=== PATIENT | female | born 1975 | race Caucasian/White ===

== ENCOUNTER 2022-07-11 10:47 | Outpatient (CLI) | payer OTHER, SELFPAY ==
[2022-07-11 12:25] VITALS: PULSE 85; O2SAT 94
[2022-07-11 12:35] VITALS: PULSE 72; O2SAT 95
--- NOTE | 2022-07-11 13:53 | HOMEO2EVAL ---
Evaluation was performed at [facility] Evaluation [facility]: Home Oxygen (O2) Evaluation Start: 07/11/22 13:37 Freq: Status: Active Protocol: RPE Activity Type Activity Date Activity User E-sign Co-sign Detail Recorded Client Recorded Date Recorded By Document 07/11/22 12:25 DOUGWilli [id number] 07/11/22 13:48 KAB Document 07/11/22 12:35 KAB [id number] 07/11/22 13:48 KAB 07/11/22 07/11/22 12:25 12:35 Home O2 Evaluation Test Phase Resting Exercise Oxygen Delivery Room Air Room Air Pulse Oximetry (90-100 %) 94 95 Pulse Rate (60-100 beats/min) 85 72 Activity Tolerance Excellent Excellent Rating of Perceived Dyspnea (PD) +1 Mild, Noticeable to the Participant but Not to an Observer Rate of Perceived Exertion (PE) 9 Very light Ambulation Distance (feet) 340 Ambulation Distance (meters) 103.62 Home Oxygen Evaluation Comments Pt walked approx 340 feet . Spo2 stayed in the 90's. Treatment Charges O2 Evaluation - Outpatient
--- NOTE | 2022-07-11 14:41 | WPDPFTINT ---
PFT Procedure Performed PFT Procedure Performed Spirometry with Pre/Post Bronchodilator Plethysmography (Lung Vol) Flow Vol Loop PFT Interpretation DOS: 07/11/2022 REQUESTING: Luis Angel Harris APRN REASON FOR TESTING: COPD PULMONARY FUNCTION TESTS Results are reliable and reproducible. Spirometry: Pre bronchodilator FEV1 is 1.34 L, 52% predicted, moderately decreased. Pre bronchodilator FVC 2.41 L, 71% predicted. The FEV1/FVC ratio is 56%. This is decreased and demonstrates airflow obstruction. The DTC80-80% is 0.54 L, 18% predicted. After bronchodilator, there is 12% increase in FVC, 2.69 L, more than 200 mL. There is 18% increase in FEV!, 1.58 L, greater than 200 mL. This is significant. The LML35-43% increases 24%, however the absolute amount is low. Lung volumes: The total lung capacity is 5.39 L, 108% predicted, normal. Residual volume is 170% predicted, 2.94 L, severe air trapping. RV/TLC is increased at 55% consistent with air trapping. Airway resistance is 280%, increased. Diffusion: Not performed due to technical problems with the equipment. Flow volume loop: There is significant coving of the expiratory limb. IMPRESSION: This study shows moderately a severe obstructive ventilatory impairment with excellent response to bronchodilator. There is severe air trapping. No diffusion was obtained due to technical problems with the equipment. Abbey Denson MD
== END 2022-07-11 10:48 | disposition home or self-care (01) ==
PROVIDERS: PCP Nurse Practitioner Family; Visit Provider Nurse Practitioner Family
DX: J44.9 Chronic obstructive pulmonary disease, unspecified (principal)
CPT/HCPCS: 94060; 94618; 94726

== ENCOUNTER 2022-07-23 12:04 | Outpatient (CLI) | payer OTHER, SELFPAY ==
[2022-07-27 07:17] LABS: Alpha-1-Antitrypsin, QN 110 mg/dL (83-199)
== END 2022-07-23 12:05 | disposition home or self-care (01) ==
LOC: CHSLAB 12:05
PROVIDERS: PCP Nurse Practitioner Family; Visit Provider Nurse Practitioner Family
DX: J44.9 Chronic obstructive pulmonary disease, unspecified (principal); Z14.8 Genetic carrier of other disease
CPT/HCPCS: 36415; 82103

== ENCOUNTER 2022-08-30 20:06 | Outpatient (CLI) | payer OTHER, SELFPAY ==
--- NOTE | 2022-09-24 12:11 | WPDSLEEPSTUD ---
Sleep Study Date of Study: 08/30/22 Ordering Provider: Luis Angel Harris APRN Interpreting Physician: Abbey Denson MD Sleep Study Type: Polysomnogram Height: 1.63 m Weight: 38.555 kg Body Mass Index: 14.6 Neck Circumference (inches): 13 [place]: 11 Reason for Sleep Study Hypersomnia, fragmented sleep, hypoxemia at night; split night study requested * July 24, 2022, Nocturnal oximetry -oxygen desaturation index of 72 and a minimum desaturation to 80%. The patient spent 228 minutes below 88% saturation. Sleep History Abbey Wilhelm is a 47-year-old woman with COPD and tobacco abuse. She has a history of opioid abuse, in remission, on Suboxone. She had a nocturnal oximetry on July 24, 2022 which showed an oxygen desaturation index of 72 and a minimum desaturation to 80%. The patient spent 228 minutes below 88% saturation. She was referred for a split night study. She has taking medications to help her get to sleep. She frequently awakens from sleep feeling short of breath. She does not awaken at night with heartburn, belching or coughing. She constantly snores loudly enough that others complain about it. She occasionally has trouble sleeping with a cold. She frequently wakes up gasping for breath at night. She constantly has breathing problems at night observed by others. She does not sweat excessively at night. She rarely notices her heart pounding or beating irregularly at night. She occasionally falls asleep during the day. She does not fall asleep involuntarily or while driving. She rarely has loss of muscle tone with strong emotion. She rarely has daytime difficulties due to excessive sleepiness. She occasionally feels paralyzed on waking or falling asleep and occasionally has vivid dreamlike scenes on waking or falling asleep. She is occasionally afraid to go to sleep. On occasion she has nightmares. She frequently remembers her dreams. She frequently has racing thoughts. She does not feel sad or depressed. She constantly has anxiety. She occasionally has muscular tension. She frequently notices parts of her body jerking, and occasionally kicks at night. She occasionally has crawling aching feelings in her legs. She rarely has any kind of leg pain at night. She does not have morning jaw pain. She does not grind her teeth with sleep. She is not bothered by pain during the day or awakened by pain at night. She rarely wakes up feeling stiff the morning. She occasionally wakes up with sore achy muscles. She occasionally wakes up with pain in the neck and spine. She has headaches, fatigue, and memory problems. Normal bedtime is between 10:00 p.m. and 11:00 p.m., taking 30 minutes to 1 hour to fall asleep. She typically wakes up 1-2 times during the night. While awake, she may watch television. It takes her 15 minutes to an hour to return to sleep. She wakes the morning by 7:00 a.m.. Her weekend schedule is the same. She estimates having getting between 6 and 8 hours of sleep at night. She takes naps in the afternoon or evening. She may feel refreshed after short 10-15 minute nap. She is usually drowsy for an hour or longer after waking. She feels better in the morning compared to other times of day. Habits: Tobacco 1/2 pack per day. Caffeine 8 oz to 16 oz a day. No alcohol. She endorses using recreational drugs, does not specify. [facility] Past Medical History Medical History (Updated 09/24/22 @ 18:57 by Abbey Denson MD) Anxiety COPD (chronic obstructive pulmonary disease) Lung nodule Opioid abuse In remission, on Suboxone Surgical History Surgical History H/O: hysterectomy 2000 Family History Family History Mother Lung cancer Osteoporosis Father No problems noted. Social History Social History (Reviewed 09/24/22 @ 12:20 by Abbey Trimble
[2022-09-24 19:42] VITALS: BMI 14.6
== END 2022-08-31 07:10 | disposition home or self-care (01) ==
LOC: CHSCSM 20:07
PROVIDERS: PCP Nurse Practitioner Family; Visit Provider Nurse Practitioner Family
DX: G47.10 Hypersomnia, unspecified (principal); G47.34 Idiopathic sleep related nonobstructive alveolar hypoventilation
CPT/HCPCS: 95810

== ENCOUNTER 2022-10-23 19:57 | Outpatient (CLI) | payer OTHER, SELFPAY ==
--- NOTE | 2022-10-29 01:27 | WPDSLEEPSTUD ---
Sleep Study Date of Study: 10/23/22 Ordering Provider: Luis Angel Harris APRN Interpreting Physician: Abbey Denson MD Sleep Study Type: BiPAP Titration Height: 1.63 m Weight: 38.555 kg Body Mass Index: 14.6 Neck Circumference (inches): 13 [place]: 11 Reason for Sleep Study * Hypersomnolence; snoring, witnessed apneas * Central sleep apnea with Thien-Rios breathing, presents for a titration * August 30, 2022 Basic sleep study showed central sleep apnea with an apnea hypopnea index of 10.7 and desaturation 85%.? Oxygen was started late in the study it as she did not meet criteria for PAP therapy early enough and she had sustained hypoxemia.??She had several episodes of Thien-Rios respirations during this study. Her central apnea index was 10.2.? This was worse in supine REM with a supine index of 17.4.? ? She has a history of opioid dependence, currently? in remission, being treated with Suboxone,?a combination of buprenorphine and naloxone.?? Sleep History Abbey Wilhelm is a 47-year-old woman with COPD and tobacco abuse.? She has a history of opioid abuse, in remission, on Suboxone.? She had a nocturnal oximetry on July 24, 2022 which showed an oxygen desaturation index of 72 and a minimum desaturation to 80%.? The patient spent 228 minutes below 88% saturation.? She was referred for a split night study.? She has taking medications to help her get to sleep.? She frequently awakens from sleep feeling short of breath.? She does not awaken at night with heartburn, belching or coughing.? She constantly snores loudly enough that others complain about it.? She occasionally has trouble sleeping with a cold.? She frequently wakes up gasping for breath at night.? She constantly has breathing problems at night observed by others.? She does not sweat excessively at night.? She rarely notices her heart pounding or beating irregularly at night.? She occasionally falls asleep during the day.? She does not fall asleep involuntarily or while driving.? She rarely has loss of muscle tone with strong emotion.? She rarely has daytime difficulties due to excessive sleepiness.? She occasionally feels paralyzed on waking or falling asleep and occasionally has vivid dreamlike scenes on waking or falling asleep.? She is occasionally afraid to go to sleep.? On occasion she has nightmares.? She frequently remembers her dreams.? She frequently has racing thoughts.? She does not feel sad or depressed.? She constantly has anxiety.? She occasionally has muscular tension.? She frequently notices parts of her body jerking,? and occasionally kicks at night.? She occasionally has crawling aching feelings in her legs.? She rarely has any kind of leg pain at night.? She does not have morning jaw pain.? She does not grind her teeth with sleep.? She is not bothered by pain during the day or awakened by pain at night.? She rarely wakes up feeling stiff the morning.? She occasionally wakes up with sore achy muscles.? She occasionally wakes up with pain in the neck and spine.? She has headaches, fatigue, and memory problems. Normal bedtime is between 10:00 p.m. and 11:00 p.m., taking 30 minutes to 1 hour to fall asleep.? She typically wakes up 1-2 times during the night.? While awake, she may watch television.? It takes her 15 minutes to an hour to return to sleep.? She wakes the morning by 7:00 a.m..? Her weekend schedule is the same.? She estimates having getting between 6 and 8 hours of sleep at night.? ? She takes naps in the afternoon or evening.? She may feel refreshed after short 10-15 minute nap.? She is usually drowsy for an hour or longer after waking.? She feels better in the morning compared to other times of day. Habits:? Tobacco 1/2 pack per day.? Caffeine 8 oz to 16 oz a day.? No alcohol.? She endorses using recreational substances. [facility] Past Medical History Medical History (Updated 10/29/22 @ 12:10 by Abbey Denson MD) Anxiety Central sleep apnea COPD (chronic o
[2022-10-29 12:29] VITALS: BMI 14.6
== END 2022-10-24 06:00 | disposition home or self-care (01) ==
LOC: CHSCSM 20:05
PROVIDERS: PCP Nurse Practitioner Family; Visit Provider Nurse Practitioner Family
DX: G47.31 Primary central sleep apnea (principal)
CPT/HCPCS: 95811

== ENCOUNTER 2025-10-02 08:09 | Emergency (ER) | payer OTHER, SELFPAY ==
[2025-10-02] VITALS (14 sets, daily range): BP systolic 90–115; BP diastolic 55–73; PULSE 81–110; RESP 16–18; TEMP 36.7–36.9; O2SAT 90–94
--- NOTE | ~2025-10-02 | CT_ITS ---
CTA CHEST CLINICAL HISTORY: elevated d-dimer/ SOB/ Intermittent chest pain . COMPARISON: Chest x-ray today TECHNIQUE: Helical CTA performed from thoracic inlet to upper abdomen 100 mL Omnipaque 350 Coronal, sagittal reformats. Multiplanar MIPS CT images acquired with automatic exposure control for dose reduction DLP: 158 mGy-cm FINDINGS: Pulmonary arteries: No PE. Thoracic Aorta: No dissection or aneurysm. Heart/pericardium: Unremarkable. RV/LV ratio: Normal. Lungs/Pleura: Emphysema. Biapical scarring. Medial left upper lobe atelectasis and bronchiolectasia with mucus plugging. Additional scattered bilateral foci bronchiolectasia with mucous plugging. Tracheobronchial tree: Patent. Nodes: Enlarged right hilar and subcarinal node. Bones: No acute bony abnormality. Soft tissues: Unremarkable. Visualized upper abdomen: Hepatomegaly. IMPRESSION: 1. No PE. 2. Enlarged right hilar and subcarinal lymph node. Malignancy not excluded. Consider PET/CT. Alternatively short interval follow-up CT chest. 3. Scattered foci bilateral infectious bronchiolitis. 4. Emphysema. Recommend annual screening CT chest. Reviewed, dictated and finalized at location R. TRICAL TRYOUT PERSON IMPRESSION: 1. No PE. 2. Enlarged right hilar and subcarinal lymph node. Malignancy not excluded. Co nsider PET/CT. Alternatively short interval follow-up CT chest. 3. Scattered foci bilateral infectious bronchiolitis. 4. Emphysema. Recommend annual screening CT chest.
--- NOTE | ~2025-10-02 | XR_ITS ---
Examination: XR chest 2V Clinical History: productive cough/ intermittent chest pain x1 week; worsening Comparison: None Technique: PA and Lateral Findings: Cardiomediastinal silhouette normal size and configuration. Lungs clear. Hyperinflation. Probable bibasilar nipple shadow. No acute bony abnormality. IMPRESSION: 1. No acute cardiopulmonary findings. 2. Emphysema with probable COPD. 3. Probable bibasilar nipple shadow. Recommend repeat x-ray with nipple markers to exclude nodules. Reviewed, dictated and finalized at location R. UNITY SERVICES MANAGER IMPRESSION: 1. No acute cardiopulmonary findings. 2. Emphysema with probable COPD. 3. Probable bibasilar nipple shadow. Recommend repeat x-ray with nipple marker s to exclude nodules.
--- NOTE | 2025-10-02 08:10 | ED_ITS ---
HPI - URI/Sore Throat General Chief Complaint: Upper Respiratory Infection Stated Complaint: not feeling well Time Seen by Provider: 10/02/25 08:10 Source: patient Mode of arrival: ambulatory Limitations: no limitations History of Present Illness HPI Narrative: Patient is a 50-year-old female with lung congestion about mid chest and short of breath for the past week. She has COPD. She feels a tightness and occasional pain around the mid chest that radiates around to the sides and back for the past week. No fever chills. No nausea vomiting or diarrhea. Her baseline blood pressure is accurate in the low 100s. MD elicited complaint: cough and other (Shortness of breath and chest congestion for the past week) Pertinent past history: COPD Onset (ago): week(s) (1) Consistency: constant Severity: moderate Pain scale (0-10): 1 Description of mucous: clear Able to tolerate fluids by mouth: Yes Exacerbating factors: exertion Relieving factors: nothing Context: sick contacts Associated symptoms: cough and shortness of breath Treatments prior to arrival: none Related Data Home Medications ?Medication ?Instructions ?Recorded ?Confirmed ?Last Taken ?Type albuterol sulfate 90 mcg/actuation 1 puff inhalation Q 4H PRN 06/21/22 11/30/22 Unknown History aerosol inhaler (ProAir HFA) budesonide-formoterol HFA 160 2 puff inhalation Q12H 0 06/21/22 11/30/22 Unknown History mcg-4.5 mcg/actuation aerosol inhaler (Symbicort) naloxone 4 mg/actuation nasal 4 mg intranasal Q2-3M UT N 06/21/22 11/30/22 Unknown History spray (Narcan) oxcarbazepine 300 mg tablet 300 mg PO BID 06/21/22 Unknown History prazosin 2 mg capsule 2 mg PO QHS 06/21/22 3 Unknown History risperidone 1 mg tablet 1 mg PO DAILY 06/21/2211/30 Unknown History alprazolam 0.5 mg tablet (Xanax) 0.5 mg PO TID PRN anx iety 11/30/22 11/30/22 Unknown History buprenorphine 8 mg-naloxone 2 mg 2.5 film sublingual D AILY 11/30/22 11/30/22 Unknown History sublingual film (Suboxone) Allergies Allergy/AdvReac Type Severity Reaction Status Date / Time No Known Allergies Allergy Verified 10/02/25 08:12 Review of Systems 2 Review of Systems: All systems reviewed & are unremarkable except as noted in HPI and below Constitutional: Constitutional: Reports no additional constitutional complaints Eyes: Eyes: Reports no additional eye complaints ENT: Reports system reviewed and no additional complaints, except as documented Cardiovascular: Cardiovascular: Reports no additional cardiovascular complaints Respiratory: Respiratory: Reports no additional respiratory complaints Gastrointestinal: Gastrointestinal: Reports no additional gastrointestinal complaints Genitourinary: Genitourinary: Reports no additional female genitourinary complaints Musculoskeletal: Musculoskeletal: Reports no additional musculoskeletal complaints Integumentary/Breasts: Skin/Breast: Reports system reviewed and no additional complaints, except as docu Neurologic: Reports system reviewed and no additional complaints, except as documented Psychiatric: Psychiatric: Reports no additional psychiatric complaints Endocrine: Endocrine: Reports no additional endocrine complaints Hematologic/Lymphatic: Hematologic/Lymphatic: Reports no additional hematologic/lymphatic complaints Allergic/Immunologic: Allergic/Immunologic: Reports no additional allergic/immunologic complaints [facility] Past Medical History Medical History Central sleep apnea Anxiety Lung nodule Opioid abuse In remission, on Suboxone COPD (chronic obstructive pulmonary disease) Surgical History Surgical History H/O: hysterectomy 2000 Family History Family History Mother Lung cancer Osteoporosis Father No problems noted. Social History Social History Smoking packs per day: 1 Smoking cigarettes per day: 20.0 Years smoked: 32 Smoking pack-years: 32.00 Smoking status: Current every day smoker Tobacco type: cigarettes Second hand tobacco smoke exposure: Yes Alcohol intake: former Substance use: former Living arrangements: with family Exam 2 Const: General: ill appearing Nutritional Appearance: well nourished O rientation/consciousness: patient oriented x3 Limitations: no limitations HENMT: Head: normal to inspection Ears: external ears normal F clulen/Nose/Sinus: Normal external nose present Eyes: Conjunctivae: conjunctivae normal Pupils: Equal, round and reactive pupils present EOM: EOMs intact bilaterally Neck: Neck: normal visual inspection Chest: Chest palpation & inspection: normal inspection of the chest Resp: Effort & Inspection: normal respiratory effort and not labored A uscultation: not clear to auscultation bilaterally, crackles (Bilaterally mid to lower lungs), no rales, rhonchi, no wheezes, breath sounds present and diminished lung sounds (Bilaterally) Cardio: Rate: regular rate Rhythm: regular rhythm Heart sounds: no murmurs GI: Inspection: non-distended GI Palp: Yes Soft to palpation and No Tenderness to palpation present (GI) Auscultation: normal bowel sounds : General: Yes bladder normal to palpation Back/Spine/Pelvis: Back: no CVA tenderness Skin: General skin exam: normal color Rashes: no rashes Wounds: no wounds Neuro: General: patient oriented x3, moves all extremities and no meningeal signs Extrem: General: normal to inspection, no clubbing, cyanosis or edema and no pedal edema Psych: Mental Status: mental status grossly normal Affect: normal affect Attitude: cooperative Course Vital Signs Vital signs: Vital Signs Temperature 36.9 C 10/02/25 08:14 Pulse Rate 103 H 10/02/25 08:14 Respiratory Rate 16 10/02/25 08:14 Blood Pressure 106/66 10/02/25 08:14 Pulse Oximetry 91 10/02/25 08:14 Oxygen Delivery Room Air 10/02/25 08:14 Temperature 36.9 C 10/02/25 08:14 Pulse Rate 103 H 10/02/25 08:14 Respiratory Rate 16 10/02/25 08:14 Blood Pressure 106/66 10/02/25 08:14 Pulse Oximetry 93 10/02/25 08:17 Oxygen Delivery Room Air 10/02/25 08:17 [facility] Narrative Medical decision making narrative: Patient is a 50-year-old female with cough and congestion with shortness of breath for the past week. We will do labs and a chest x-ray and monitor for sepsis and COPD exacerbation. DuoNeb and Solu-Medrol. Differential Diagnosis Differential Diagnosis: Pneumonia sepsis, COPD exacerbation Lab Data [facility] Lab Attestation statement: I personally reviewed the patient's lab results. 10/02/25 08:50 10/02/25 08:50 Labs: Lab Results 10/02/25 Range/Units 08:50 WBC 14.5 H (4.8-10.8) K/mm3 RBC 4.08 L (4.20-5.40) M/mm3 Hgb 12.8 (12.0-15.0) g/dL Hct 39.4 (35.0-49.0) % MCV 96.6 (78.0-102.0) fL MCH 31.4 H (27.0-31.0) pg MCHC 32.5 (32-36) g/dL RDW 12.0 (11.6-14.4) % Plt Count 275 (150-420) K/mm3 MPV 8.6 L (9.2-11.8) fl Immature Gran % (Auto) 0.6 H (0.0-0.0) % Neut % (Auto) 80.8 H (50.0-70.0) % Lymph % (Auto) 11.4 L (18.0-42.0) % [place] % (Auto) 6.9 (2.0-11.0) % Eos % (Auto) 0.2 L (1.0-6.0) % Baso % (Auto) 0.1 (0.0-1.0) % Lymph # (Auto) 1.65 (1.10-4.50) K/mm3 [place] # (Auto) 1.00 H (0.10-0.90) K/mm3 Eos # (Auto) 0.03 (0.02-0.50) K/mm3 Baso # (Auto) 0.02 (0.00-0.10) K/mm3 Abs Immat Gran (auto) 0.09 H (0.00-0.00) K/mm3 Absolute Neuts (auto) 11.66 H (1.70-7.20) K/mm3 Absolute Nucleated RBC 0.00 (0.00-0.00) K/mm3 Nucleated RBC % 0.0 (0-0.0) % PT 10.9 (9.50-12.1) Seconds INR 1.0 APTT 29.4 (23.9-30.70) Sec D-Dimer 1.23 H (0.19-0.50) mg/L Sodium 139 (137-145) mmol/L Potassium 3.4 (3.4-5.0) mmol/L Chloride 100 (98-107) mmol/L Carbon Dioxide 30 (22-30) mmol/L Anion Gap 9 (4-12) mmol/L BUN 16 (7-17) mg/dL Creatinine 0.58 L (0.7-1.0) mg/dL Estim Creat Clear Calc 52 ml/min Estimated GFR > 60 (59 - ) Glucose 104 (65-110) mg/dL Calculated Osmolality 289 (285-295) mOsm/kg Lactic Acid 0.9 (0.7-2.0) mmol/L Calcium 8.4 (8.4-10.2) mg/dL Total Bilirubin 0.6 (0.2-1.3) mg/dL AST 35 (14-36) U/L ALT 17 (6-35) U/L Alkaline Phosphatase 101 (38-126) U/L Troponin I < 0.012 (0.000-0.034) ng/mL NT-Pro-B Natriuret Pep 982 H (19.9-100) pg/mL Total Protein 7.0 (6.3-8.2) g/dL Albumin 4.0 (3.5-5.1) g/dL Influenza A (RT-PCR) Negative (Negative) Influenza B (RT-PCR) Negative (Negative) RSV (RT-PCR) Negative (Negative) SARS-CoV-2 RNA (RT-PCR) Negative (Negative) Imaging Data Attestation: I personally reviewed and interpreted this imaging study as follows: Radiologist's impression: ITS Impressions Chest X-Ray 10/02/25 08:31 IMPRESSION: 1. No acute cardiopulmonary findings. 2. Emphysema with probable COPD. 3. Probable bibasilar nipple shadow. Recommend repeat x-ray with nipple markers to exclude nodules. Chest CTA 10/02/25 10:09 IMPRESSION: 1. No PE. 2. Enlarged right hilar and subcarinal lymph node. Malignancy not excluded. Consider PET/CT. Alternatively short interval follow-up CT chest. 3. Scattered foci bilateral infectious bronchiolitis. 4. Emphysema. Recommend annual screening CT chest. ECG Data EKG #1: Attestation: I personally reviewed and interpreted this ECG as follows: ECG completion date: 10/02/25 ECG completion time: 08:25 normal rate, sinus rhythm, no ectopy, non-specific ST changes, normal QRS, normal QT and right axis Discharge Plan Discharge Clinical Impression: Acute exacerbation of chronic obstructive pulmonary disease (COPD), Bronchitis Patient Disposition: Home Condition: Stable Instructions: Antibiotic Form, Acute Bronchitis (ED), COPD (Chronic Obstructive Pulmonary Disease) (DC) Additional Instructions: Please follow-up with the primary doctor in the next week. Patient Language: Serbian Prescriptions: New levofloxacin 500 mg tablet 500 mg PO DAILY 7 Days Qty: 7 0RF prednisone 20 mg tablet 40 mg PO DAILY 3 Days Qty: 6 0RF No Action buprenorphine-naloxone [Suboxone] 8-2 mg film 2.5 film sublingual DAILY naloxone [Narcan] 4 mg/actuation spray,non-aerosol 4 mg intranasal Q2-3M PRN Rx Instructions: spray 1 dose into ONE nostril; alternate nostrils w each dose until help arrives oxcarbazepine 300 mg tablet 300 mg PO BID prazosin 2 mg capsule 2 mg PO QHS budesonide-formoterol [Symbicort] 160-4.5 mcg/actuation HFA aerosol inhaler 2 puff inhalation Q12H albuterol sulfate [ProAir HFA] 90 mcg/actuation HFA aerosol inhaler 1 puff inhalation Q4H PRN risperidone 1 mg tablet 1 mg PO DAILY alprazolam [Xanax] 0.5 mg tablet 0.5 mg PO TID PRN (Reason: anxiety) Follow-up/Referrals: Eliezer Watson MD [Primary Care Provider, Internal Medicine] Time of Disposition: 10:42
--- OUTSIDE RECORDS SUMMARY | 2025-10-02 08:11 | XMS_ITS | Clinical Summary ---
Author Organization [facility] Address [address] [place] [id number] Care Team Providers Care Lot Porter Name Role Phone Ly Almonte Primary Care Provider [phone] Allergies No known active allergies Medications clonazePAM (KLONOPIN) 1 MG tablet Take 1 mg by mouth 2 (two) times daily as needed for Anxiety. Active buprenorphine-nalox one 2-0.5 MG SL Tab SL tablet Place under the tongue 2 (two) times a day. Active CLONIDINE TD Take 0.5 mg by mouth 4 (four) times daily. Active ALPRAZolam 0.25 MG tablet Take 0.25 mg by mouth nightly as needed for Sleep. Active mirtazapine 7.5 MG Tab tablet 9 Active ranitidine 75 MG Tab Take 1 tablet by mouth 2 (two) times daily as needed. Active ondansetron 4 MG disintegrating tablet Take 1 tablet (4 mg total) by mouth every 6 (six) hours as needed. 10 tablet 0 Active Family History Medical History Relation Comments Cancer Mother Relation Status Comments Mother Social History Tobacco Use Types Packs/Day Years Used Date Smoking Tobacco: Every Day Cigarettes 0.5 20 Smokeless Tobacco: Never Alcohol Use Standard Drinks/Week Comments No 0 (1 standard drink = 0.6 oz pur e alcohol) AUDIT-C Answer Date Recorded Frequency of Alcohol Consumption Never 05/07/2019 Average Number of Drinks Not on file 019 Frequency of Binge Drinking Not on file 04/14 Comments No Sex and Gender Information Value Date Recorded Sex Assigned at Not on file Legal Sex Female 7:57 PM CDT Gender Identity Not on file Sexual Orientation Not on file Last Filed Vital Signs Vital Sign Reading Time Taken Comments Blood Pressure 134/118 12/15/2019 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 Pulse 100 12/15/2019 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 Temperature 37.1 C (98.7 F) 12/15/2019 1:00 AM FLIGHT SECURITY SPECIALIST Respiratory Rate 20 12/15/2019 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 Oxygen Saturation 100% 12/15/2019 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 Inhaled Oxygen Concentration - - Weight 33.6 kg (74 lb) 12/15/2019 1:00 AM FLIGHT SECURITY SPECIALIST Height 162.6 cm (5' 4) 12/15/2019 1:00 AM FLIGHT SECURITY SPECIALIST Body Mass Index 12.7 12/15/2019 1:00 AM FLIGHT SECURITY SPECIALIST Plan of Treatment Health Maintenance Due Date Last Done Comments Colorectal Cancer Screening Colonoscopy (10 Years) 1975 Annual Physical 1978 Hepatitis C 1993 DTaP, Tdap and Td Vaccines ( 1 - Tdap) 1994 Hepatitis B Vaccines (1 of 3 - 19+ 3-dose series) 1994 Pneumococcal Vaccine: 50+ Years (1 of 2 - PCV) 1994 Mammogram Screening 2015 Zoster Vaccines (1 of 2) 2025 COVID-19 Vaccine (3 - 2024-2 6 season) 2025 06/20/2021, 05/10/2021 Influenza Adult (#1) 2025 Hepatitis A Vaccines Aged Out No long er eligible based on patient's age to complete this topic Meningococcal B Vaccine Aged Out No l onger eligible based on patient's age to complete this topic Meningococcal Vaccine Aged Out No camila shon eligible based on patient's age to complete this topic RSV Immunizations Under 20 Months Aged Out No longer eligible b ased on patient's age to complete this topic Insurance Advance Directives Documents on File Type Date Recorded 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
--- OUTSIDE RECORDS SUMMARY | 2025-10-02 08:11 | XMS_ITS | Encounter Summary ---
Author Organization [facility] Address [address] [place] [id number] Care Team Providers Care Brick Or Block Maker Name Role Phone Ly Almonte Primary Care Provider [phone] Encounter Details Date Type Department Care Team (Late st Contact Info) Description 03/21/2019 Abstract [facility] CONVERSION [address] [place] [address] , Generic Conversion, Social History Tobacco Use Types Packs/Day Years Used Date Smoking Tobacco: Never Assessed Comments Unknown Sex and Gender Information Value Date Recorded Sex Assigned at Not on file Legal Sex Female 7:57 PM CDT Gender Identity Not on file Sexual Orientation Not on file documented as of this encounter Functional Status documented as of this encounter Plan of Treatment Not on file documented as of this encounter Visit Diagnoses Not on filedocumented in this encounter Care Teams Brick Or Block Maker Relationship Specialty Start Date End Date Ly Almonte PA [address] [place] [address] PCP - General 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
--- NOTE | 2025-10-02 08:19 | PC.NURSE ---
Patient taken down to radiology department.
--- NOTE | 2025-10-02 08:24 | ECG_ITS ---
Test Date: 2025-10-02 08:29:44 Measurements Intervals [place] Rate: 95 P: 84 DC: 152 QRS: 118 QRSD: 88 T: 74 QT: 316 QTc: 399 Interpretive Statements SINUS RHYTHM RIGHT AXIS DEVIATION POSSIBLE LEFT ATRIAL ENLARGEMENT PATTERN CONSISTENT WITH PULMONARY DISEASE POSSIBLE RIGHT VENTRICULAR CONDUCTION DELAY BASELINE ARTIFACT- I, III, AVR, AVL BORDERLINE ECG No previous ECG available for comparison Electronically Signed On 10-02-2025 09:17:37 DEPUTY JUVENILE OFFICER by Santiago Mejia D.O.
--- NOTE | 2025-10-02 08:34 | PC.NURSE ---
covid swab handed to lab
[2025-10-02] MEDS: IPRATROPIUM 0.5 MG/ALBUTEROL SULFATE 2.5 MG (BASE) AMPUL.NEB 3 ML INHALATION (08:46)
[2025-10-02 08:56] LABS: Hematocrit 39.4 % (35.0-49.0); Hemoglobin 12.8 g/dL (12.0-15.0); Immature Granulocyte Percent A 0.6 % (0.0-0.0); Lymphocytes Absolute Auto 1.65 K/mm3 (1.10-4.50); Mean Corpuscular HGB Conc 32.5 g/dL (32-36); Mean Corpuscular Hemoglobin 31.4 pg (27.0-31.0); Mean Corpuscular Volume 96.6 fL (78.0-102.0); Nucleated Red Blood Cells Absolute Auto 0.00 K/mm3 (0.00-0.00); Nucleated Red Blood Cells Perc 0.0 % (0-0.0); Platelet Count Result 275 K/mm3 (150-420); Red Blood Count 4.08 M/mm3 (4.20-5.40); White Blood Count 14.5 K/mm3 (4.8-10.8)
[2025-10-02 09:15] LABS: INR 1.0; Partial Thromboplastin Time 29.4 Sec (23.9-30.70); Prothrombin Time 10.9 Seconds (9.50-12.1)
[2025-10-02 09:31] LABS: Alanine Aminotransferase 17 U/L (6-35); Albumin Level 4.0 g/dL (3.5-5.1); Alkaline Phosphatase 101 U/L (38-126); Anion Gap 9 mmol/L (4-12); Aspartate Amino Transferase 35 U/L (14-36); Bilirubin,Total 0.6 mg/dL (0.2-1.3); Blood Urea Nitrogen 16 mg/dL (7-17); Calcium 8.4 mg/dL (8.4-10.2); Carbon Dioxide 30 mmol/L (22-30); Chloride 100 mmol/L (98-107); Estimated CRCL calculation 52 ml/min; Estimated Glomerular Filt Rate > 60; Glucose 104 mg/dL (65-110); Osmolality Calculated 289 mOsm/kg (285-295); Potassium 3.4 mmol/L (3.4-5.0); Sodium 139 mmol/L (137-145); Total Protein 7.0 g/dL (6.3-8.2)
[2025-10-02 09:34] LABS: Influenza A QL RT-PCR Negative (Negative); Influenza B QL RT-PCR Negative (Negative); RSV RNA, RT-PCR Negative (Negative); SARS-CoV-2 RNA PCR Negative (Negative)
[2025-10-02 09:37] LABS: NT Pro B Type Natriuretic Pept 982 pg/mL (19.9-100)
[2025-10-02 09:43] LABS: Troponin I < 0.012 ng/mL (0.000-0.034)
== END 2025-10-02 10:54 | disposition home or self-care (01) ==
PROVIDERS: Emergency Provider Emergency Medicine; PCP Family Medicine
DX: J44.1 Chronic obstructive pulmonary disease with (acute) exacerbation (principal); J44.0 Chronic obstructive pulmonary disease with (acute) lower respiratory infection; J20.9 Acute bronchitis, unspecified; F17.210 Nicotine dependence, cigarettes, uncomplicated; Z20.822 Contact with and (suspected) exposure to COVID-19
CPT/HCPCS: 36415; 71046; 71275; 80053; 83605; 83880; 84484; 85025; 85380; 85610; 85730; 87637; 93005; 96372; 99284; J2919; Q9967